=== PATIENT | male | born 1995 | race Hispanic/Latino ===

== ENCOUNTER 2021-10-31 11:01 | Emergency (ER) | payer SELFPAY ==
[2021-10-31] MEDS ORDERED: Tetracaine 0.5% PF 4 ML BOT ONE (11:24)
[2021-10-31] MEDS ORDERED: Fluorescein Opthalmic Strip ONE (11:24)
== END 2021-10-31 12:13 | disposition home or self-care (01) ==
LOC: MADERS 11:01
DX: H11.002 Unspecified pterygium of left eye (principal); Z87.891 Personal history of nicotine dependence
CPT/HCPCS: 99283